=== PATIENT | male | born 1955 | race Caucasian/White ===

== ENCOUNTER 2017-01-08 12:02 | Inpatient (IN) ==
--- NOTE | 2017-01-08 15:17 | Diag Imaging Result Document ---
PROCEDURE NAME: FLAT/UPRIGHT ABD/1 VIEW CHEST - 01/08/2017 FLAT AND UPRIGHT AND CHEST, 4 VIEWS: FINDINGS: The lungs are well expanded. No cardiomegaly. No pneumonia. There is scarring in the right apex. No free air beneath the diaphragm. There is air and stool throughout the colon. No bowel obstruction. No organomegaly. No abnormal abdominal or pelvic calcifications. IMPRESSION: No acute abnormality.
[2017-01-08 15:19] LABS: MANUAL DIFF NEEDED? NO
[2017-01-08 15:26] LABS: BASO% 0.1 % (0.0-0.8); EOS# 0.01 X1000 (0.0-0.7); EOS% 0.1 % (0.0-10.0); HEMATOCRIT 41.8 % (42.0-52.0); HEMOGLOBIN 14.9 g/dL (14.0-18.0); IMM GRAN# 0.03 X1000 (0.0-0.04); IMM GRAN% 0.2 % (0.0-0.5); LYMPH# 1.11 X1000 (1.2-3.4); LYMPH% 7.4 % (20.5-51.1); MCH 30.3 PG (27-31); MCHC 35.6 g/dL (33-37); MCV 85.1 FL (81-99); MONO# 1.28 X1000 (0.11-0.59); MONO% 8.5 % (1.7-9.3); MPV 12.4 FL (7.4-10.4); NEUT% 83.7 % (42.2-75.2); PLT 130 X1000 (130-400); RBC 4.91 XMIL (4.7-6.1)
[2017-01-08 15:58] LABS: AGAP 14; ALBUMIN 3.9 g/dL (3.5-5.0); ALKALINE PHOSPHATASE 65 U/L (32-122); BUN 13 mg/dL (8-22); CALCIUM 8.5 mg/dL (8.8-10.2); CHLORIDE 94 mmol/L (98-107); COSMO 269; GOT 16 U/L (10-34); GPT 12 U/L (10-44); POTASSIUM 3.5 mmol/L (3.5-5.1); SODIUM 134 mmol/L (136-145); TCO2 26 mmol/L (25-35); TOTAL BILIRUBIN 1.16 mg/dL (0.20-1.00)
--- NOTE | 2017-01-08 17:57 | Diag Imaging Result Document ---
PROCEDURE NAME: CT ABD/PELVIS W/ IV CONT ONLY - 01/08/2017 CT ABDOMEN AND PELVIS WITH INTRAVENOUS CONTRAST: TECHNIQUE: Dose reduction protocol. FINDINGS: Mild fatty infiltration of the liver. Normal spleen, pancreas, and adrenal glands. The gallbladder is distended and contains several stones. I believe there is an aortic femoral graft. No free air. No bowel obstruction. There is stool throughout the colon. Normal appendix. No abscess. The urinary bladder is moderately distended. The prostate is not enlarged. IMPRESSION: 1. No free air following colonoscopy. 2. The gallbladder is quite distended measuring at least 4.5 x 10.3 cm and contains several stones. 3. Atrophic left kidney. A preliminary report was given at 5:44 p.m.
[2017-01-08] MEDS ORDERED: NS 1,000 ML IV ONE ×2 (18:04→20:14)
[2017-01-08 18:11] LABS: INR 1.12; PROTIME 11.8 Seconds (9.2-11.7)
[2017-01-08] MEDS ORDERED: LEVAQUIN 750 MG/D5W 750 MG/150 ML IVPB IV ONE (18:15)
[2017-01-08] MEDS ORDERED: FLAGYL 500 MG/NS 500 MG/100 ML IVPB IV ONE (18:16)
--- NOTE | 2017-01-08 18:17 | PROVIDER DOCUMENTATION ---
This chart was entered by Genie Gannon Scribe, acting as scribe for Jessica Tomlinson Jr, MD. HPI-Abdominal Pain/GI Problem - General Chief Complaint: Post Op Complaint Stated Complaint: SEVERE PAIN AFTER COLONOSCOPY 01/07/17 Time Seen by Provider: 01/08/17 14:07 Source: patient Allergies/Adverse Reactions: Patient Allergies Allergy/AdvReac Type Severity Reaction Status Date / Time Penicillins AdvReac Unknown Verified 01/08/17 15:38 Home Medications: Home Medication List Medication Instructions Recorded Confirmed Last Taken Type ATORVAstatin [Lipitor] 40 mg PO QHS 01/08/17 01/08/17 01/07/17 21:00 History Amlodipine Besylate 2.5 mg PO DAILY 01/08/17 01/08/17 01/08/17 05:30 History Citalopram [Celexa] 10 mg PO BID 01/08/17 01/08/17 01/08/17 05:30 History Citalopram [Celexa] 20 mg PO DAILY 01/08/17 01/08/17 01/08/17 05:30 History Metoprolol Succinate 100 mg PO DAILY 01/08/17 01/08/17 01/08/17 05:30 History - History of Present Illness-ABD Nature of Presenting Problems: Pt is 61 y/o M presents to the ED with RUQ pain. Pt states having a colonoscopy done yesterday. Pt states pain started last night. Pt states N and denies V Abdominal Pain Onset Location: reports: RUQ Pain Radiation: reports: no radiation Quality of Pain: reports: sharp, stabbing Severity in ED: reports: mild Onset/Duration: reports: 24 hours ago Timing: reports: still present Activities at Onset: reports: light activity Exposure to sick contacts?: No Modifying Factors: improves with: movement (worse), other (position improves) Associated Symptoms: reports: nausea. denies: anxiety, arm pain, back/neck pain , chest pain, constipation, cough, diaphoresis, diarrhea, dizziness, EENT symptoms, fatigue, fever/chills, genitourinary problems, headaches, heartburn, joint pain, loss of appetite, malaise, muscle aches, sinus congestion/drainage, rash, seizure, shortness of breath, sensory/motor loss, pain with inspiration, swelling/mass in abdomen, syncope, vomiting, weakness, trouble walking Last BM: unsure Dark Stools Present?: reports: none noticed Rectal Bleeding: reports: none Rectal Pain: reports: none Emesis Description: reports: none Bruising or Bleeding Gums?: No Similar Symptoms Previously?: Yes Recently seen or treated by another doctor?: No Review of Systems - Adult - REVIEW OF SYSTEMS - ADULT Constitutional: reports: no symptoms reported Eyes: reports: no symptoms reported Ears, Nose, Mouth & Throat: reports: no symptoms reported Cardiovascular: reports: no symptoms reported Respiratory: reports: no symptoms reported Gastrointestinal: reports: abdominal pain (RUQ), nausea. denies: diarrhea, vomiting Genitourinary: reports: no symptoms reported Musculoskeletal: reports: no symptoms reported Integumentary: reports: no symptoms reported Neurological: reports: no symptoms reported Psychiatric: reports: no symptoms reported Endocrine: reports: no symptoms reported Hematologic/Lymphatic: reports: no symptoms reported Allergic/Immunologic: reports: no symptoms reported All Other Systems: Reviewed and Negative Past History - Adult - PAST MEDICAL HISTORY-ADULT Review of Records: reports: Nursing Assessment Review, Medications Reviewed, Social history reviewed & non-contributory. Major Childhood Illnesses: reports: history unknown Cardiovascular: reports: HTN, hyperlipidemia Respiratory: reports: denies history Gastrointestinal: reports: denies history Obstetrical/Gynecological: reports: denies history Genitourinary: reports: denies history Musculoskeletal: reports: denies history Neurological: reports: denies history Endocrine/Immune: reports: denies history Other Conditions: reports: denies history - PRIOR SURGERIES/PROCEDURES Surgical/Procedure History: reports: orthopedic (extremity) - PRIOR HOSPITALIZATIONS Prior Hospitalizations: reports: none - IMMUNIZATION STATUS Childhood Immunizations: See Nurse Assessment Flu Vaccine: See Nurse Assessment - FAMILY HISTORY Family History: reviewed, not pertinent - SOCIAL HISTORY Smoking: denies Substance Use: denies Living Situation: family Physical Exam-General - PHYSICAL EXAM-ADULT Initial Vital Signs Reviewed: Yes - CONSTITUTIONAL General Appearance: alert, no apparent distress - EYES Eyes: PERRL/EOMI, pink conjunctivae - HEAD, EARS, NOSE, MOUTH & THROAT HENMT: normocephalic/atraumatic, moist mucous membranes, normal ENT inspection - NECK Neck: supple, normal inspection - RESPIRATORY Respiratory: chest non-tender, lungs clear, normal breath sounds - CARDIOVASCULAR Cardiovascular: normal peripheral pulses, regular rate, rhythm - GASTROINTESTINAL (ABDOMEN) Abdominal Exam: normal bowel sounds, soft, tenderness (RUQ) - LYMPHATIC Lymphatic: no adenopathy - MUSCULOSKELETAL Back Exam: normal inspection, no CVA tenderness, no vertebral tenderness Extremity: normal range of motion, non-tender - SKIN Integumentary: normal color, normal turgor, warm/dry - NEUROLOGIC Neurologic: grossly normal - PSYCHIATRIC Psych/Mental Status: normal mood/affect, oriented x 3 Progress - PLAN OF CARE/RESULTS Progress/Plan/Lab Results: Vital Signs - 8 hr 01/08/17 13:02 Temperature 98.1 F Pulse Rate 64 Respiratory Rate 20 Blood Pressure 117/75 O2 Sat by Pulse Oximetry 100 Orders Category Date Time Status FLAT/UPRIGHT ABD/1 VIEW CHEST [RAD] Stat Exams 01/08/17 14:14 Taken CBC WITH ELECTRONIC DIFF [HEME] Stat Lab 01/08/17 14:15 Uncollected CMP [COMPREHENSIVE METABOLIC PANEL] [CHEM] Stat Lab 01/08/17 14:15 Uncollected Result Diagrams: 01/08/17 15:12 01/08/17 15:12 - XRAY 1 XRAY: Bilateral XRAY Study: Chest, Abdomen Impression: Normal XRAY Interpretation: no acute abnormality - CT/MRI 1 CT Study: Abdomen, Pelvis Impression: Abnormal CT Results: no free air; distended gallbladder (5x10cm) with stones - CONSULTS/PCP/HOSPITALIST Notification #1 *Consult/PCP/Hospitalist*: Dr. Vasquez Time Discussed: 18:06 Consult Disposition: Admit (will on floor) #2 Consult: Dr. Jordan Time Discussed: 18:17 Consult Disposition: Will see in ED, Admit Departure - Departure Time of Disposition Decision: 18:16 DIAGNOSIS: Acute cholecystitis Disposition: ADMITTED INPATIENT 09 Certified Medical Emergency: Emergent Condition: Good Referrals and Follow-Ups: Scar Cabrera [Primary Care Provider] - This chart was documented by the indicated scribe, (Genie Gannon Scribe) and accurately reflects the services I performed and decisions made by me, Jessica Tomlinson Jr, MD, as attested by the provider's signature.
[2017-01-08] MEDS ORDERED: TYLENOL PO PRN (19:30)
[2017-01-08] MEDS ORDERED: MORPHINE IV PRN (19:30)
[2017-01-08] MEDS ORDERED: ZOFRAN IV PRN (19:30)
[2017-01-08] MEDS ORDERED: CELEXA PO SCH ×2 (21:00)
--- NOTE | 2017-01-08 21:09 | CONSULTATION ---
HISTORY OF PRESENT ILLNESS: Mr. Conrad North is a patient of Dr. Cabrera. He is a 61-year- old white male who underwent a colonoscopy yesterday by Dr. Barr as an outpatient. This procedure was done about 9 o'clock and he began hurting in his upper abdomen at 2 p.m. The report of the colonoscopy is that it was normal and no polyps were removed at the time of colonoscopy. His pain lasted through the afternoon and night and he presented to our emergency department around 12 today because of this persistent upper abdominal pain. He described the pain in his right upper quadrant and it radiated to his back. As part of his evaluation, he underwent a CT scan of his abdomen and pelvis which suggested distended gallbladder. He has had a history of abdominal surgery which was an aortobifemoral arterial bypass graft 19 years ago. I believe it was done by Dr. Green. He states that he feels a little bit better since being admitted. He is on IV antibiotics and we were asked to evaluate him for acute cholecystitis. PAST MEDICAL HISTORY: Hypertension, high cholesterol, and peripheral vascular disease. He quit smoking 19 years ago. He also has arthritis. MEDICATIONS: Celexa 10 mg p.o. b.i.d., amlodipine 2.5 mg daily, Lipitor 40 mg p.o. at bedtime, metoprolol 100 mg p.o. daily and Celexa 20 mg daily. ALLERGIES: Penicillin. SOCIAL HISTORY: He is . His was at the bedside. She is battling right lung cancer. She did not have surgery but she received chemo and radiation and I put her port in. He works for the [employer] outside. 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 He has not seen him recently. He states that he has had no chest pain. No weight loss. No problems with bowel function . I did a 14-point review of systems and it was essentially negative except for the history of present illness. FAMILY HISTORY: Noncontributory. PHYSICAL EXAMINATION: GENERAL: Mr. North is a middle aged white male who is slightly overweight and he appears to be in good shape. HEENT EXAM: No jaundice. No oral lesions. No cervical or supraclavicular lymphadenopathy. HEART: Regular rate. LUNGS: Clear to auscultation and percussion bilaterally. He has a well-healed midline incision without evidence of ventral hernia. ABDOMEN: Soft. It does seem to be tender in the right upper quadrant at the area of the gallbladder I could not palpate the gallbladder. He had no costovertebral tenderness. I did not do a rectal exam. He just had colonoscopy. EXTREMITIES: He does have palpable femoral pulses. Those incisions in the groin are well healed. His feet were warm. NEURO: He had no focal deficits. DIAGNOSTIC DATA: His white blood cell count 15, hematocrit is 42%. His electrolytes were within normal limits. His total bilirubin was 1.2. The rest of his liver function tests were within normal limits. His PT was 11.8. INR 1.12. His temperature 98.1 degrees, pulse is 64, blood pressure 117/75, O2 saturation 100%. CT scan performed about 4:30 this afternoon showed a distended gallbladder containing stones. No evidence of free air following colonoscopy. Report was given to the ER at 5:44 p.m. IMPRESSION: Acute cholecystitis. PLAN: He is receiving IV fluids and antibiotics this evening. He is hemodynamically satisfactory and mostly comfortable. Will plan to proceed with cholecystectomy tomorrow. He understands that he is at increased risk for an open procedure because of previous abdominal surgery and acute cholecystitis. We specifically discussed the risks of surgery which include bleeding, infection, injury to the intraabdominal contents with trocar placement, bile leak requiring reoperation for drainage, and injury to the extrahepatic bile ducts requiring reoperation. He understands the need for surgery and its risks and he wants to proceed. cc: Jennifer Vasquez MD
--- NOTE | 2017-01-08 21:14 | HISTORY AND PHYSICAL ---
CHIEF COMPLAINT: Abdominal pain. HISTORY OF PRESENT ILLNESS: This is a pleasant 61-year-old gentleman who came in for pain. Apparently had a colonoscopy on the . He has been holding his aspirin and came in with right upper quadrant pain. He has had polyps so the colonoscopy I think was just a followup. It was not a colonoscopy done for symptomatology. Pain is right upper quadrant. It has been going on and off for several days. Workup in the ER revealed [place] grade [place] [address], and a CT scan that showed distended gallbladder with several stones consistent with early cholecystitis. In any case, patient admitted as such. PAST MEDICAL HISTORY: 1. PVD. He has had bypass surgery. 2. Dyslipidemia. 3. Denies any heart history although he has a coronary artery disease equivalent or any diabetes. PAST SURGICAL HISTORY: He has had a femoral-popliteal bypass within the last [address] Green did that which I think was in 2012. FAMILY HISTORY: Reviewed, noncontributory. SOCIAL HISTORY: No tobacco or ethanol. ALLERGIES: Penicillin. MEDICATIONS: He is on amlodipine 2.5 daily, Lipitor 40 daily, Celexa 20 daily, Celexa 10 b.i.d., metoprolol 100 daily. REVIEW OF SYSTEMS: Negative times a 10 point review of systems. PHYSICAL EXAM: VITAL SIGNS: Blood pressure 111/48, heart rate 69, respiratory 16, temperature 99.7 degrees, 94% on room air. CARDIOVASCULAR: Regular rate and rhythm. PULMONARY: Bilateral breath sounds. Clear to auscultation. GI: Tender palpation right upper quadrant. Nondistended. Bowel sounds are positive. EXTREMITIES: No clubbing or cyanosis. LYMPHATICS: No peripheral edema. NEUROLOGICAL: Nonfocal. LABORATORY DATA: White count 15, T bilirubin 1.16. Otherwise negative. ASSESSMENT: 61-year-old male with history of hypertension, peripheral vascular disease presenting with symptomatic cholelithiasis the beginnings of cholecystitis. 1. Symptomatic cholelithiasis. I am going to keep him NPO after midnight. We started Levaquin and Flagyl. Surgical consult has been requested although I think Dr. Vasquez has already been contacted. Anticipate laparoscopic cholecystectomy pending on his evaluation and follow. 2. Hypertension. Will continue to monitor. 3. Peripheral vascular disease, dyslipidemia. Will continue monitor on current medications. He usually is on aspirin but he has been off that for the last 5 or 6 days. cc: Scar Cabrera MD
[2017-01-08] MEDS: LEVAQUIN 750 MG/D5W 750 MG/150 ML IVPB IV SCH (21:32)
[2017-01-08] MEDS: LIPITOR PO SCH (21:33)
[2017-01-08] MEDS: NORCO-10 PO PRN (21:37)
[2017-01-08] MEDS: MORPHINE IV PRN (23:06)
[2017-01-09] MEDS: FLAGYL 500 MG/NS 500 MG/100 ML IVPB IV SCH ×6 (00:08→20:58)
[2017-01-09] MEDS: MORPHINE IV PRN (03:54)
[2017-01-09 06:10] LABS: HEMATOCRIT 41.5 % (42.0-52.0); HEMOGLOBIN 14.3 g/dL (14.0-18.0); MCH 30.3 PG (27-31); MCHC 34.5 g/dL (33-37); MCV 87.9 FL (81-99); MPV 12.6 FL (7.4-10.4); RBC 4.72 XMIL (4.7-6.1)
[2017-01-09 06:25] LABS: ALBUMIN 3.7 g/dL (3.5-5.0); CALCIUM 8.5 mg/dL (8.8-10.2); TOTAL BILIRUBIN 3.04 mg/dL (0.20-1.00)
[2017-01-09] MEDS ORDERED: LR 1,000 ML ONE (08:41)
[2017-01-09] MEDS ORDERED: MARCAINE 0.25% PF/EPI 1:200,000 ONE (08:41)
[2017-01-09] MEDS ORDERED: SODIUM CHLORIDE 0.9% ONE (08:42)
[2017-01-09] MEDS ORDERED: CELEXA PO SCH (09:00)
[2017-01-09] MEDS ORDERED: FENTANYL ONE (10:32)
[2017-01-09] MEDS ORDERED: DIPRIVAN 1% ONE (10:33)
--- NOTE | 2017-01-09 11:01 | Diag Imaging Result Document ---
PROCEDURE NAME: OPERATIVE CHOLANGIOGRAM - 01/09/2017 INTRAOPERATIVE CHOLANGIOGRAM, TWO VIEWS: Contrast fills the common bile duct and is emptied into the duodenum. No stone or stricture. IMPRESSION: Normal intraoperative cholangiogram. NOTE: Fluoro time was 18 seconds. MTDD
[2017-01-09] MEDS: TOPROL XL PO SCH (12:04)
[2017-01-09] MEDS: NORCO-10 PO PRN ×3 (12:04→20:58)
--- NOTE | 2017-01-09 12:48 | OPERATIVE NOTE ---
PROCEDURE DATE: 01/09/2017 PREOPERATIVE DIAGNOSIS: Acute cholecystitis with cholelithiasis. POSTOPERATIVE DIAGNOSIS: Acute cholecystitis with cholelithiasis. PRINCIPAL PROCEDURE: Laparoscopic cholecystectomy with intraoperative cholangiogram. SURGEON: Jennifer Vasquez MD RECYCLING SPECIALIST: MILLIE Hallman. ANESTHESIA: General in addition to local anesthetic. ESTIMATED BLOOD LOSS: 25 mL. DRAINS: None. INDICATIONS: Mr. Conrad North is a 61-year-old white male who has had a history of an aortobifemoral arterial bypass graft. Recently, he underwent a colonoscopy by Dr. Poncho Barr and within 24 hours he began experiencing upper abdominal pain. He presented to our emergency department yesterday with these symptoms. A CT scan was performed and it suggested a swollen gallbladder. We felt that he had acute cholecystitis and cholecystectomy was recommended. FINDINGS: The gallbladder was tightly distended and acutely inflamed. The bile within it was brown. We did do an intraoperative cholangiogram, which showed free flow of the dye into the duodenum without evidence of extrahepatic stones or obstruction. The liver appeared to be healthy. He did have some abdominal adhesions, mostly between the omentum and the anterior abdominal wall, which we felt we negotiated safely when putting in our trocars. DESCRIPTION OF PROCEDURE: The patient was brought to the operating room, placed supine, received general anesthesia, and was intubated. We did not use a Sarkar catheter tube. His abdomen was prepped and draped within the sterile field. He was already on IV antibiotics. We began the procedure by making a small incision in the right upper quadrant of the abdomen, away from his midline incision. We made this incision with a 15 blade scalpel and a Veress needle was introduced through this incision into the abdomen, and the pneumoperitoneum was established. We then placed a 5 mm trocar through this incision and then used a 5 mm trocar to examine the abdomen. We felt there was no injury. We identified the adhesions along the midline and we placed our trocars, negotiating around these adhesions. Initially, I placed a 10 mm trocar in the right upper quadrant of the abdomen under direct vision of our 5 mm camera. I changed cameras to a 10 mm camera and I placed a 5 mm trocar above the umbilicus, through the right rectus muscle to the left of the umbilicus to avoid adhesions, again under direct vision of the camera, and this was an 11 mm trocar. I placed another 5 mm trocar in the anterior axillary line, in the right upper quadrant of the abdomen. We decompressed the gallbladder right away with a needle and suction. We then used a grasper with teeth to grab the fundus of the gallbladder and retract it superiorly, along with the right lobe of the liver. Another grasper was used to grab the body of the gallbladder and the triangle of Calot was bluntly dissected. We identified the cystic duct along its length. I placed a clip at the cystic duct/gallbladder junction. We made a small incision in the cystic duct using hook scissors and a taut intraoperative cholangiogram catheter was used to perform the cholangiogram, with the findings above. Once the cholangiogram was completed, we removed the catheter and 2 clips were placed proximally on the cystic duct. We divided the cystic duct between clips using hook scissors. The cystic artery was identified. A clip was placed distally, 2 proximally, and it was divided using the hook scissors. The spatula cautery was used to remove the gallbladder from the liver bed. We used an Endo bag to remove the gallbladder through our umbilical incision. We placed the trocar back through this incision and the area of operation was thoroughly inspected, irrigated, and the irrigation was removed with suction. There was no evidence of ongoing bleeding or bile leak. We did not leave a drain. All trocars were removed under direct vision of the camera. The pneumoperitoneum was allowed to dissipate. I used [id number] 2-0 Vicryl stitches to close the posterior fascia at our umbilicus and also the anterior fascia. We closed all other incisions just the skin with 4-0 Monocryl subcuticular stitches. Dressings were applied. He tolerated the procedure well, with plans for him to go to the recovery room and then be rehospitalized. cc: Jennifer Vasquez MD
--- NOTE | 2017-01-09 14:24 | PROGRESS NOTE ---
DATE: 01/09/2017 SUBJECTIVE: Patient seen postop. He seems to be doing okay. A little bit of a low O2 saturation though. Some pain but otherwise has tolerated the lap junie without too much difficulty. OBJECTIVE: Vital signs: Blood pressure 131/78, heart rate of 86, respiratory rate 20, temperature 99.9 degrees, 92%, he is up to 3 L already, he was kind of low yesterday as well. Cardiovascular: Regular rate and rhythm. Pulmonary: Bilateral breath sounds. Clear to auscultation. GI: Soft, nontender, nondistended. Bowel sounds were positive. Extremities: No clubbing or cyanosis. Lymphatics: No peripheral edema. Neurological: Nonfocal. LABORATORY DATA: White count is at 12, T bilirubin went up to 3.014, with an AST and ALT of 272 and 235. PROBLEM LIST: 1. Acute cholecystitis. He has gotten a laparoscopic cholecystectomy. I defer antibiotics to Dr. Vasquez, but it looks like he left them on the Levaquin and Flagyl for right now. 2. History of peripheral vascular disease. Appears stable. Continue regular medications. Anti- platelet therapy will be when Dr. Vasquez feels he is stable for that. 3. Peripheral vascular disease. Continue his statin and follow clinically. DISPOSITION: Pending resolution of his issues. cc: Keyur Jordan MD
[2017-01-09] MEDS: NORVASC PO SCH (14:35)
[2017-01-09] MEDS: LEVAQUIN 750 MG/D5W 750 MG/150 ML IVPB IV SCH (20:58)
[2017-01-09] MEDS: PERIDEX MT SCH (21:02)
[2017-01-09] MEDS: LIPITOR PO SCH (21:02)
[2017-01-10] MEDS: NORCO-10 PO PRN (01:50)
[2017-01-10 06:00] VITALS: BP 144/79
[2017-01-10] MEDS: FLAGYL 500 MG/NS 500 MG/100 ML IVPB IV SCH (06:21)
[2017-01-10 06:23] LABS: HEMATOCRIT 40.9 % (42.0-52.0); HEMOGLOBIN 14.1 g/dL (14.0-18.0); MCH 30.5 PG (27-31); MCHC 34.5 g/dL (33-37); MCV 88.3 FL (81-99); MPV 12.5 FL (7.4-10.4); RBC 4.63 XMIL (4.7-6.1)
[2017-01-10 06:45] LABS: AGAP 15; ALBUMIN 3.7 g/dL (3.5-5.0); ALKALINE PHOSPHATASE 137 U/L (32-122); BUN 14 mg/dL (8-22); CALCIUM 8.7 mg/dL (8.8-10.2); CHLORIDE 99 mmol/L (98-107); COSMO 277; GOT 103 U/L (10-34); GPT 159 U/L (10-44); POTASSIUM 3.9 mmol/L (3.5-5.1); SODIUM 138 mmol/L (136-145); TCO2 24 mmol/L (25-35); TOTAL BILIRUBIN 1.22 mg/dL (0.20-1.00); TOTAL PROTEIN 7.2 g/dL (6.3-8.3)
[2017-01-10] MEDS: TOPROL XL PO SCH (08:11)
[2017-01-10] MEDS: PERIDEX MT SCH (08:11)
[2017-01-10] MEDS: NORVASC PO SCH (08:11)
--- NOTE | 2017-01-10 08:35 | Diag Imaging Result Document ---
PROCEDURE NAME: CHEST-PORTABLE - 01/10/2017 PORTABLE CHEST: Compared 01/08/2017. FINDINGS: There is some atelectasis at the left base. There is possibly some atelectasis at the left superior perihilar region. The remainder of the lungs appear essentially clear. There is no pleural effusion or pneumothorax identified. Heart size is within normal limits. IMPRESSION: Atelectasis at right base and left superior perihilar region.
--- NOTE | 2017-01-10 18:45 | DISCHARGE SUMMARY ---
ADMISSION DATE: 01/08/2017 DISCHARGE DATE: 01/10/2017 ADMITTING DIAGNOSIS: Acute cholecystitis. DISCHARGE DIAGNOSIS: Acute cholecystitis. PRINCIPAL PROCEDURE: Laparoscopic cholecystectomy with intraoperative cholangiogram on 01/09/2017. DISCHARGE DIET: Regular. DISCHARGE DISPOSITION: He will return to my outpatient office in 8 days. DISCHARGE DISABILITY: Is full. DISCHARGE MEDICATION: He is to return to his home medication including aspirin. I did not send him home on any discharge medications. HOSPITAL COURSE: Mr. Conrad North is a 61-year-old white male who the day prior to his presentation 01/07/2017 underwent a colonoscopy per Dr. Barr as an outpatient. It was reported as normal and no polyps were removed. However that evening he began experiencing upper abdominal pain, which persisted through the night prompting him to present to our emergency department with this abdominal pain on 01/08/2017. A CT scan of his abdomen and pelvis was part of his evaluation, which suggested distended gallbladder as did his symptoms. He was admitted and on hospital day 2 underwent a laparoscopic cholecystectomy with intraoperative cholangiogram for acute cholecystitis. At the time of surgery the cholangiogram was normal. He had a previous aortobifemoral arterial bypass graft and we were able to do this procedure laparoscopically and negotiate his intraabdominal adhesions. On postop day 1, he was feeling much better. It was felt safe to discharge him home under the care of his with followup in our outpatient offices in 8 days. He knows to contact our office if there is any problems such as increasing abdominal pain or fever. cc: Ba Barr MD
--- NOTE | 2017-01-11 06:18 | EKG Report ---
Test Performed on : 01/08/2017 8:53:21 PM Test Reason : Re-Ordered Blood Pressure : / mmHG Vent. Rate : 070 BPM Atrial Rate : 070 BPM P-R Int : 158 ms QRS Dur : 074 ms QT Int : 400 ms P-R-T Axes : 015 063 119 degrees QTc Int : 432 ms Normal sinus rhythm. Nonspecific ST and T wave abnormality (mild diffuse T wave flattening) Abnormal ECG No previous ECGs available Confirmed by Tai GRACE, Thom Iniguez ([id number]) on 01/11/2017 8:57:09 AM
[2017-01-11] MEDS ORDERED: LOPRESSOR ONE (10:53)
[2017-01-11] MEDS ORDERED: ZOFRAN ONE (10:53)
[2017-01-11] MEDS ORDERED: NEOSTIGMINE ONE (10:53)
[2017-01-11] MEDS ORDERED: SODIUM CHLORIDE 0.9% 10 ML ONE (10:53)
[2017-01-11] MEDS ORDERED: NEO-SYNEPHRINE ONE (10:53)
[2017-01-11] MEDS ORDERED: STERILE WATER INJ. ONE (10:53)
[2017-01-11] MEDS ORDERED: ROBINUL ONE (10:54)
[2017-01-11] MEDS ORDERED: NORCURON ONE (10:54)
[2017-01-11] MEDS ORDERED: ANESTHESIA PB SET 88 IN 5742 ONE (10:54)
[2017-01-11] MEDS ORDERED: DECADRON ONE (10:54)
[2017-01-11] MEDS ORDERED: LR 2,000 ML ONE (10:54)
[2017-01-11] MEDS ORDERED: XYLOCAINE-MPF 2% ONE (10:54)
[2017-01-11] MEDS ORDERED: QUELICIN (DOSE) ONE (10:54)
[2017-01-11] MEDS ORDERED: EPHEDRINE ONE (10:54)
== END 2017-01-10 09:51 | disposition home or self-care (01) ==
LOC: ED 12:02 → 4N 18:43
PROVIDERS: ATTEND Internal Medicine

== ENCOUNTER 2019-08-03 13:01 | Observation (INO) ==
[2019-08-03] MEDS ORDERED: ASPIRIN PO ONE (13:09)
[2019-08-03 13:33] LABS: BASO# 0.04 X1000 (0.0-0.2); BASO% 0.4 % (0.0-0.8); EOS# 0.13 X1000 (0.0-0.7); EOS% 1.4 % (0.0-10.0); HEMATOCRIT 43.9 % (42.0-52.0); HEMOGLOBIN 15.8 g/dL (14.0-18.0); LYMPH# 3.14 X1000 (1.2-3.4); LYMPH% 34.3 % (20.5-51.1); MCH 30.5 PG (27-31); MCV 84.7 FL (81-99); MONO# 0.64 X1000 (0.11-0.59); MPV 12.3 FL (7.4-10.4); NEUT% 56.9 % (42.2-75.2); PLT 148 X1000 (130-400); RBC 5.18 XMIL (4.7-6.1); RDW 13.4 % (11.5-14.5); WBC 9.15 X1000 (4.8-10.8)
[2019-08-03 13:39] LABS: INR 1.01; PROTIME 13.4 Seconds (11.0-16.0)
[2019-08-03 13:40] LABS: PTT 25.3 Seconds (22.3-41.8)
--- NOTE | 2019-08-03 14:00 | Diag Imaging Result Doc PS360 ---
EXAM: CHEST-2 VIEWS 08/03/2019 HISTORY: SOB/CP TECHNIQUE: PA and lateral chest COMMENT: Compared to 01/10/2017 the atelectasis seen particularly over the right hemidiaphragm has resolved. The inspiration is better and the heart and primary vascularity are within normal limits. IMPRESSION: No evidence of acute disease. Electronically signed by Marcello Espinal 08/03/2019 1:57 PM
--- NOTE | 2019-08-03 14:00 | EKG Report ---
Test Performed on : 08/03/2019 1:12:36 PM Test Reason : SOB/CP Blood Pressure : / mmHG Vent. Rate : 062 BPM Atrial Rate : 062 BPM P-R Int : 156 ms QRS Dur : 074 ms QT Int : 440 ms P-R-T Axes : 000 053 064 degrees QTc Int : 446 ms Normal sinus rhythm. Normal ECG When compared with ECG of 08-JAN-2017 20:53, Nonspecific T wave abnormality, improved in Lateral leads Unconfirmed Result
[2019-08-03 14:13] LABS: ALB/GLOB RATIO 2.5; ALBUMIN 4.7 g/dL (3.5-5.0); CALCIUM 9.5 mg/dL (8.8-10.2); CREATININE 1.3 mg/dL (0.7-1.2); TOTAL BILIRUBIN 0.9 mg/dL (0.20-1.00); TOTAL PROTEIN 6.6 g/dL (6.3-8.3)
[2019-08-03] MEDS ORDERED: DUONEB (A & A) INH ONE (14:14)
[2019-08-03] MEDS ORDERED: ZOFRAN ODT PO ONE (14:14)
[2019-08-03] MEDS ORDERED: ANTIVERT PO ONE (14:14)
--- NOTE | 2019-08-03 16:26 | PROVIDER DOCUMENTATION ---
This chart was entered by Tiffanie Vasqeuz Scribe, acting as scribe for Mary Conway MD. HPI-Respiratory General - General Chief Complaint: Shortness of Breath Stated Complaint: SOB Time Seen by Provider: 08/03/19 13:22 Source: patient, family () Allergies/Adverse Reactions: Patient Allergies Allergy/AdvReac Type Severity Reaction Status Date / Time Penicillins AdvReac Unknown Verified 08/03/19 13:46 Home Medications: Home Medication List Medication Instructions Recorded Confirmed Last Taken Type ATORVAstatin [Lipitor] 40 mg PO QHS 01/08/17 08/03/19 01/07/17 21:00 History Amlodipine Besylate 2.5 mg PO DAILY 01/08/17 08/03/19 01/08/17 05:30 History Citalopram [Celexa] 10 mg PO QAM 01/08/17 08/03/19 01/08/17 05:30 History Citalopram [Celexa] 30 mg PO DAILY 01/08/17 08/03/19 01/08/17 05:30 History Metoprolol Succinate 100 mg PO DAILY 01/08/17 08/03/19 01/08/17 05:30 History Aspirin EC 81 mg PO DAILY 08/03/19 08/03/19 Unknown History - History of Present Illness-Resp Nature of Presenting Problem: 64 yowm presents to the ed with multiple complaints. 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 while under the trailer pt became sob, dizzy, nausea, vomiting, cough, chills and chest pressure. pt sts he crawled out and sx improved. he rested and then went back under the trailer and all sx returned. pt sts once he came out the sx have persisted so he got his to bring him to ed. pt on exam is anxious Quality of Pain: reports: pressure Severity in ED: reports: moderate Onset/Duration: reports: this morning Timing: reports: still present, intermittent Exposure: reports: unknown cause Cough Quality/Degree: reports: mild, dry cough Episode Frequency: no prior episodes Current Respiratory Medication Therapy: Initiated see nurses note Modifying Factors: improves with: oxygen, sitting upright. worse with: exertion Associated Symptoms: reports: chest pain/soreness, cough, dizziness, fever/chills (denies fever but has chills), lightheadedness, shortness of breath , other (n/v). denies: wheezing Similar Symptoms Previously?: No Recently seen or treated by another doctor?: No Review of Systems - Adult - REVIEW OF SYSTEMS - ADULT Constitutional: reports: see HPI, chills. denies: fever Eyes: reports: no symptoms reported Ears, Nose, Mouth & Throat: reports: no symptoms reported Cardiovascular: reports: see HPI, chest pain. denies: palpitations, syncope Respiratory: reports: see HPI, cough, shortness of breath. denies: wheezing Gastrointestinal: reports: see HPI, nausea, vomiting. denies: diarrhea Genitourinary: reports: no symptoms reported Musculoskeletal: denies: back pain, neck pain Integumentary: reports: no symptoms reported Neurological: reports: see HPI, dizziness/vertigo. denies: headache/migraines, slurred speech, syncope Psychiatric: reports: no symptoms reported Endocrine: reports: no symptoms reported Hematologic/Lymphatic: reports: no symptoms reported Allergic/Immunologic: reports: no symptoms reported All Other Systems: Reviewed and Negative Past History - Adult - PAST MEDICAL HISTORY-ADULT Review of Records: reports: Old Records Reviewed, Nursing Assessment Review, Medications Reviewed, Social history reviewed & non-contributory. Major Childhood Illnesses: reports: history unknown Cardiovascular: reports: HTN, hyperlipidemia, PAD, other (sx) Respiratory: reports: denies history Gastrointestinal: reports: denies history Genitourinary: reports: denies history Musculoskeletal: reports: denies history Hand Dominance: Right Handed Neurological: reports: denies history Psychiatric: reports: denies history Endocrine/Immune: reports: denies history Other Conditions: reports: denies history - PRIOR SURGERIES/PROCEDURES Surgical/Procedure History: reports: orthopedic (extremity), other (double angioplasty) - PRIOR HOSPITALIZATIONS Prior Hospitalizations: reports: none - IMMUNIZATION STATUS Childhood Immunizations: See Nurse Assessment Flu Vaccine: See Nurse Assessment - FAMILY HISTORY Family History: reviewed, not pertinent - SOCIAL HISTORY Smoking: quit greater than 1 year Substance Use: denies Living Situation: family Physical Exam-General - PHYSICAL EXAM-ADULT Initial Vital Signs Reviewed: Yes - CONSTITUTIONAL General Appearance: alert, mild distress, obese, anxious - EYES Eyes: PERRL/EOMI, pink conjunctivae - HEAD, EARS, NOSE, MOUTH & THROAT HENMT: negative: moist mucous membranes (dry oral) - NECK Neck: non-tender, full range of motion, supple, normal inspection - RESPIRATORY Respiratory: chest non-tender, lungs clear, normal breath sounds, other (pt c/o sob with exertion or speaking in long sentences) - CARDIOVASCULAR Cardiovascular: normal peripheral pulses, bradycardia (58), other (c/o chest pressure with sob) - CHEST (BREASTS) Chest/Breast: deferred - GASTROINTESTINAL (ABDOMEN) Abdominal Exam: normal bowel sounds, non tender, soft, other (c/o feeling bloated but denies pain/pt does have nausea with [employer]PARER). negative: distended, guarding - GENITOURINARY Male Genitalia: deferred Rectal Exam: deferred Hemoccult Exam: deferred - LYMPHATIC Lymphatic: no adenopathy - MUSCULOSKELETAL Back Exam: normal inspection, no CVA tenderness, no vertebral tenderness Extremity: normal range of motion, non-tender, normal inspection, no pedal edema , no calf tenderness, normal capillary refill, pelvis stable - SKIN Integumentary: normal color, normal turgor, warm/dry - NEUROLOGIC Neurologic: grossly normal - PSYCHIATRIC Psych/Mental Status: normal mood/affect, normal thought content, normal thought process, oriented x 3, anxious Progress - PLAN OF CARE/RESULTS Progress/Plan/Lab Results: Vital Signs - 8 hr 08/03/19 13:05 08/03/19 13:13 08/03/19 13:17 Temperature 97.1 F L Pulse Rate 79 64 Respiratory Rate 20 20 Blood Pressure 174/93 147/101 O2 Sat by Pulse Oximetry 97 99 100 Laboratory Results - last 24 hr 08/03/19 08/03/19 08/03/19 13:16 13:20 13:20 WBC 9.15 RBC 5.18 Hgb 15.8 Hct 43.9 MCV 84.7 MCH 30.5 MCHC 36.0 RDW Std Deviation 13.4 Plt Count 148 MPV 12.3 H Neut % (Auto) 56.9 Lymph % (Auto) 34.3 Bell % (Auto) 7.0 Eos % (Auto) 1.4 Baso % (Auto) 0.4 Neut # (Auto) 5.20 Lymph # (Auto) 3.14 Bell # (Auto) 0.64 H Eos # (Auto) 0.13 Baso # (Auto) 0.04 PT INR PTT (Actin FS) D-Dimer, Quantitative 1.27 H Sodium 138 Potassium 4.0 Chloride 98 Carbon Dioxide 22 L Anion Gap 18 BUN 14 Creatinine 1.3 H Estimated GFR/1.73 m2 56 BUN/Creatinine Ratio 11 Glucose 112 H Calculated Osmolality 277 Calcium 9.5 Total Bilirubin 0.90 AST 25 ALT 20 Alkaline Phosphatase 72 Creatine Kinase 109 Troponin T Inb-D-Ytxqydkspsv Pept Total Protein 6.6 Albumin 4.7 Globulin 1.9 Albumin/Globulin Ratio 2.5 08/03/19 08/03/19 08/03/19 13:20 13:20 13:20 WBC RBC Hgb Hct MCV MCH MCHC RDW Std Deviation Plt Count MPV Neut % (Auto) Lymph % (Auto) Bell % (Auto) Eos % (Auto) Baso % (Auto) Neut # (Auto) Lymph # (Auto) Bell # (Auto) Eos # (Auto) Baso # (Auto) PT 13.4 INR 1.01 PTT (Actin FS) 25.3 D-Dimer, Quantitative Sodium Potassium Chloride Carbon Dioxide Anion Gap BUN Creatinine Estimated GFR/1.73 m2 BUN/Creatinine Ratio Glucose Calculated Osmolality Calcium Total Bilirubin AST ALT Alkaline Phosphatase Creatine Kinase Troponin T < 0.010 Lqm-B-Qheamnxfoif Pept 204 H Total Protein Albumin Globulin Albumin/Globulin Ratio Orders Category Date Time Status Cardiac Monitoring DIRECTED Care 08/03/19 13:09 Active Oxygen Therapy- ED Nursing DIRECTED Care 08/03/19 13:09 Active Saline Loc NOW Care 08/03/19 13:09 Active CHEST-2 VIEWS [RAD] Stat Exams 08/03/19 13:[address] ANGIOGRM PULMONARY ARTERIES [CT] Stat Exams 08/03/19 16:25 Completed CBC WITH ELECTRONIC DIFF [HEME] Stat Lab 08/03/19 13:20 Completed CK PROFILE [SP CHEM] Stat Lab 08/03/19 13:20 Completed COMPREHENSIVE METABOLIC PANEL [CHEM] Stat Lab 08/03/19 13:20 Completed D-DIMER [COAG] Stat Lab 08/03/19 13:16 Completed PRO B-NATRIURETIC PEPTIDE Stat Lab 08/03/19 13:20 Completed PROTIME WITH INR [COAG] Stat Lab 08/03/19 13:20 Completed PTT [COAG] Stat Lab 08/03/19 13:20 Completed TROPONIN T Stat Lab 08/03/19 13:20 Completed Albuterol 2.5MG/Ipratrop 0.5MG [Duoneb (A & A)] Med 08/03/19 14:14 Discontinued 3 ml INH NOW ONE Aspirin Med 08/03/19 13:09 Discontinued 325 mg PO NOW ONE Meclizine [Antivert] Med 08/03/19 14:14 Discontinued 25 mg PO NOW ONE Ondansetron Odt [Zofran Odt] Med 08/03/19 14:14 Discontinued 4 mg PO NOW ONE Aerosol Treatments Routine Oth 08/03/19 14:15 Completed Aerosol Treatments Stat Oth 08/03/19 14:15 Completed CP/SOB/Palp >45 yrs of Age Stat Oth 08/03/19 13:09 Ordered EKG [EKG] Stat Ther 08/03/19 13:09 Draft Result Diagrams: 08/03/19 13:20 08/03/19 13:20 - REASSESSMENT Reassessment #1 Time Reassessed: 16:38 Status: improving (dr at bedside and pt has mild improvement of sx) - EKG 1 Time of EKG reading by physician:: 13:12 EKG Read and Signed by:: Mary Conway EKG Interpretation (*Must complete 3 of following elements*): Normal Rate: 62 Rhythm: nsr [place]: normal QRS: normal [place] Interval: normal ST Wave: normal - XRAY 1 XRAY: Bilateral XRAY Study: Chest Impression: See EMR Report (EXAM: CHEST-2 VIEWS 08/03/2019 HISTORY: SOB/CP TECHNIQUE: PA and lateral chest COMMENT: Compared to 01/10/2017 the atelectasis seen particularly over the right hemidiaphragm has resolved. The inspiration is better and the heart and primary vascularity are within normal limits. IMPRESSION: No evidence of acute disease. Electronically signed by Marcello Espinal 08/03/2019 1:57 PM 08/03/19 1357 Interpreting Physician: Marcello Espinal MD Dictated Date/Time: 08/03/19 1357 cc: Mary Conway MD; Scar Cabrera MD) - CT/MRI 1 CT Study: Angiogram Impression: See EMR Report - CONSULTS/PCP/HOSPITALIST Notification #1 *Consult/PCP/Hospitalist*: d/w Dr Angel Time Discussed: 18:05 Consult Disposition: Will see in ED, Admit Departure - Departure Date of Disposition Decision: 08/03/19 Time of Disposition Decision: 18:05 DIAGNOSIS: Chest pain Disposition: ADMITTED INPATIENT 09 Certified Medical Emergency: Emergent Condition: Stable Referrals and Follow-Ups: Scar Cabrera MD [Primary Care Provider] - - Critical Care Note This patient required my direct & personal management of CC.: No Attestation - Physician/ ABDOUL Attestation Patient care was provided by Advanced Practice Provider:: No The physician spent face to face time with patient:: Yes Advanced Practice Provider documentation review:: Supervising physician onsite and consulted in the evaluation and care of this patient. The physician did have a face to face encounter with the patient. This chart was documented by the indicated scribe, (Tiffanie Vasquez Scribe) and accurately reflects the services I performed and decisions made by me, Mary Conway MD, as attested by the provider's signature.
--- NOTE | 2019-08-03 17:43 | Diag Imaging Result Doc PS360 ---
EXAM: CT ANGIOGRM PULMONARY ARTERIES 08/03/2019 HISTORY: elevated d-dimer, dyspnea TECHNIQUE: This exam was performed using automated exposure control, adjustment of mA or kV according to patient size, and/or use of iterative reconstruction technique. COMMENT: There are no previous studies available for comparison. 3-D MIPS were performed. There are no filling defects in the pulmonary arteries. There are extensive atherosclerotic calcifications present in the thoracic aorta. There is calcification of the left coronary artery. No evidence of dissection or aneurysm is present. There are no abnormal fluid collections. No significant adenopathy is present. There are severe emphysematous changes in both upper lung zones. There are some atelectatic or fibrotic changes in the posterior costophrenic sulci particularly on the left. No evidence of acute pulmonary parenchymal disease is present. There are no acute bony abnormalities. No acute abnormality is demonstrated in the visualized portion of the abdomen. IMPRESSION: COPD. No evidence of pulmonary emboli. Electronically signed by Marcello Espinal 08/03/2019 5:41 PM
[2019-08-03] MEDS ORDERED: LIPITOR PO SCH (21:00)
[2019-08-03] MEDS ORDERED: DUONEB (A & A) INH PRN (21:06)
[2019-08-03] MEDS ORDERED: TYLENOL PO PRN (21:06)
[2019-08-03] MEDS ORDERED: LOVENOX SUBQ SCH (21:06)
[2019-08-03] MEDS ORDERED: ZOFRAN IV PRN (21:06)
[2019-08-03] MEDS: NS 1,000 ML IV SCH (21:47)
--- NOTE | 2019-08-03 22:45 | HISTORY AND PHYSICAL ---
CHIEF COMPLAINT: Shortness of breath and chest pain. HISTORY OF PRESENT ILLNESS: Mr. North is a very pleasant 64-year-old male who comes in with his with multiple complaints. States he woke up this morning and was feeling well. 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 States that he was not wearing a respirator of any type and it was very joshua. Apparently, while under the trailer he became short of breath, dizzy, nausea, had vomiting, cough and chest pressure. He denied overt chest pain. He just felt as if he could not fill his lungs properly. He did have some vague chills after getting out from under the house. He got into the shower and continued to be dizzy so he came into the emergency room. His past medical history contains hypertension, hyperlipidemia and peripheral vascular disease. He does not smoke. The patient had an elevated D- dimer. A CTA was obtained which ruled out pulmonary embolism. The patient will be put on the medical floor for further evaluation and treatment. PAST MEDICAL HISTORY: Hypertension, hyperlipidemia, peripheral vascular disease. PREVIOUS SURGICAL HISTORY: Double angioplasty bypass and cholecystectomy. SOCIAL HISTORY: Lives with . Smoked up until 22 years ago but quit. Has been quit for 22 years. No alcohol. No illicit drugs. FAMILY HISTORY: Positive for mother passing away from lung cancer. Father had CVAs and stomach cancer, in his 50s; however, he was noncompliant with medications from what the patient was telling me. ALLERGIES: Penicillin. HOME MEDICATION: Celexa 30 mg p.o. daily, amlodipine 2.5 mg p.o. daily, aspirin 81 mg p.o. daily, atorvastatin 40 mg p.o. daily, metoprolol 100 mg p.o. daily. REVIEW OF SYSTEMS: Fourteen-point review of systems conducted with the patient. Pertinent positives listed above in the HPI. All other systems reviewed and found to be negative. PHYSICAL EXAMINATION: VITAL SIGNS: Temperature 97.1, pulse 59, respirations 22, blood pressure 120/63, oxygen saturation 97% on room air. GENERAL: Pleasant 64-year-old male sitting in the ER stretcher, alert and oriented times 3, is in no acute distress. He has no chest pain at this time. is at bedside, very supportive. HEENT: Head is atraumatic, normocephalic. Pupils equal, round, reactive to light. Extraocular eye movement is intact. Sclerae are anicteric. Conjunctivae is pink. Oral mucosa is moist. NECK: Supple. No JVD. No thyromegaly. Trachea is midline. No cervical lymphadenopathy. CARDIAC: S1, S2 appreciated. No murmurs, gallops, rubs. LUNGS: Clear to auscultation bilaterally. No rhonchi, wheezes, rales. Symmetric rise and fall with respirations. ABDOMEN: Soft, nondistended, nontender. Bowel sounds present all 4 quadrants, normoactive. No pulsatile mass. No organomegaly. EXTREMITIES: No clubbing, cyanosis, or edema. One-plus pedal pulses bilaterally. GENITOURINARY: No bladder distention. Patient voids. Otherwise deferred. NEUROLOGICAL: Alert and oriented times 3. Cranial nerves 2 through 12 grossly intact. DIAGNOSTIC DATA: Chest x-ray: No acute disease. Pulmonary arteriogram: No evidence of pulmonary embolism. Did state that the patient has COPD. LABORATORY DATA: CBC within normal limits. Coagulation studies within normal limits. D-dimer 1.27. Sodium 138. Potassium 4. Chloride 98. Carbon dioxide 22. BUN 14. Creatinine 1.3. Glucose 112. Troponin less than 0.010. ASSESSMENT AND PLAN: 1. Chest pain, rule out acute myocardial infarction. Order stress test tomorrow morning. Check a lipid profile. Continue his metoprolol and atorvastatin as well as his daily aspirin. He was given 325 mg aspirin in the emergency room. 2. Elevated D-dimer. Patient was ruled out for pulmonary embolism. He states that he is oftentimes sedentary and does sit for long periods of time. We will order an ultrasound of lower extremities just to make sure there is no clot burden in his legs. He states that he has some pain in his left ankle but he believes that is related to a previous fracture. We will continue to monitor. 3. Hypertension. Continue home medications. 4. Hyperlipidemia. Continue home medications. 5. Mild hyperglycemia. Check hemoglobin A1c. Further recommendations per patient clinical course. Dictated by KOLE Deshpande for Cam Laird MD I have performed a face to face diagnostic evaluation. Labs/ xrays- reviewed. Exam- Chest- clear, CV- regular. A/P- Chest Pain- Admit, cardiac work up, cardiology consult. Dr. Laird cc: KOLE Deshpande MD [facility]ITALJazmin
[2019-08-03 22:51] LABS: HEMOGLOBIN A1C 5.4 % (4.8-6.0)
[2019-08-04 00:25] LABS: UR AMPHETAMINES QUAL NONE DETECTED (NONE DETECT); UR BARBITUATES QUAL NONE DETECTED (NONE DETECT); UR BENZODIAZEPIN QUAL NONE DETECTED (NONE DETECT); UR CANNABINOIDS QUAL NONE DETECTED (NONE DETECT); UR COCAINE QUAL NONE DETECTED (NONE DETECT); UR METHADONE QUAL NONE DETECTED (NONE DETECT); UR OPIATES QUAL NONE DETECTED (NONE DETECT); UR OXYCODONE QUAL NONE DETECTED (NONE DETECT); UR PCP QUAL NONE DETECTED (NONE DETECT)
[2019-08-04 05:18] LABS: BASO# 0.02 X1000 (0.0-0.2); BASO% 0.3 % (0.0-0.8); EOS# 0.16 X1000 (0.0-0.7); EOS% 2.3 % (0.0-10.0); HEMATOCRIT 42.9 % (42.0-52.0); HEMOGLOBIN 14.8 g/dL (14.0-18.0); LYMPH# 2.55 X1000 (1.2-3.4); LYMPH% 36.5 % (20.5-51.1); MCHC 34.5 g/dL (33-37); MCV 86.8 FL (81-99); MONO# 0.71 X1000 (0.11-0.59); MONO% 10.2 % (1.7-9.3); NEUT# 3.54 X1000 (1.4-6.5); NEUT% 50.7 % (42.2-75.2); PLT 132 X1000 (130-400); RBC 4.94 XMIL (4.7-6.1); RDW 13.4 % (11.5-14.5); WBC 6.98 X1000 (4.8-10.8)
[2019-08-04 05:48] LABS: CREATININE 1.4 mg/dL (0.7-1.2); POTASSIUM 4.5 mmol/L (3.5-5.1)
[2019-08-04] MEDS ORDERED: NORVASC PO SCH (09:00)
[2019-08-04] MEDS ORDERED: ASPIRIN EC PO SCH (09:00)
[2019-08-04] MEDS ORDERED: TOPROL XL PO SCH (09:00)
[2019-08-04 14:14] LABS: ALLEN TEST NO; BLOOD TYPE ARTERIAL; HCO3-(ACT) 26.4 mmoll (20.0-26.0); METHB 1.4 % (0.0-1.5); MODALITY ROOM AIR; O2(CT) 20.2 mL/dL (15.0-23.0); O2HB 93.8 % (95.0-99.0); PCO2(98.6) 40 mmHg (35-45); PO2(98.6) 70 mmHg (60-100); SAMPLE BLOOD; SAO2 97.2 % (95.0-100.0); THB 15.3 g/dL (11.5-17.4); pH(98.6) 7.43 (7.35-7.45)
--- NOTE | 2019-08-04 15:00 | PROGRESS NOTE ---
DATE: 08/04/2019 SUBJECTIVE: This morning Mr. North refers to be doing a lot better, does not have any more chest discomfort. No shortness of breath. 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 He said there was a lot of dust over there and he started having a lot of shortness of breath. He took a break and that got better. He went back and once he started he started having more shortness of breath and some chest pressure, so he came to the emergency room where he was evaluated. Initially, he was found to be slightly hypertensive with a blood pressure of 174/93. He was admitted to rule out any coronary artery disease. Of note, Mr. North has high blood pressure, dyslipidemia, previous aortoiliac stenosis status post stent placements. CURRENT VITALS: Blood pressure 154/77, pulse of 63, respirations 20, temperature 97.6 degrees. General: Mr. North is a 64-year-old gentleman. He is in bed, no distress. Mucosa is pink and moist. Anicteric. Acyanotic. Neck: Supple. No JVD. Chest: Clear to auscultation. No crepitations. No rhonchi. Cardiovascular: Regular rate and rhythm. No murmurs, no rubs, no gallops. GI: Abdomen was soft, nontender. Bowel sounds are present. 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 There is no focal neurological deficit. LABORATORY DATA: Has been reviewed. CBC is completely normal. Chemistry is also within normal range except creatinine of 1.4. The patient's EKGs on admission did show normal sinus rhythm, normal axis, no ST-segment or T-wave abnormality. A CTA of the lungs showed no evidence of pulmonary emboli, but there was COPD. ASSESSMENT: 1. Acute dyspnea secondary to airway hyperreactivity reaction on background of COPD. We think this probably was a lot of dust and fumes at where Mr. North was having his insulation done and that might have triggered his presenting complaint, suggestive of fumes induced pneumonitis. He seems to be a lot better. We are going to wait on his cardiac workup to be completed. 2. COPD on CAT scan. The patient is completely asymptomatic at this point. He has not had any symptoms before. He used to be a chain smoker in the past, but he gave up smoking more than 20 years ago. 3. History of peripheral vascular disease, status post double angioplasty bypass on the lower extremities. 4. Hypertension, controlled. 5. Dyslipidemia. So in general, I think Mr. North is now a lot better. Troponins and EKGs have been unremarkable. A stress test has been done today. We are pending the official report. If it is negative, I think we can discharge him. cc: Bradley Norwood MD MTDD
[2019-08-04] MEDS: NS 1,000 ML IV SCH (15:11)
--- NOTE | 2019-08-04 15:50 | Diag Imaging Result Document ---
PROCEDURE NAME: MYOCARDIAL PERF SCAN, STR/REST - 08/04/2019 INDICATION: Chest pain. PROCEDURES PERFORMED: 1. Ryan protocol stress. 2. One-day stress rest myocardial perfusion imaging. FINDINGS: RYAN PROTOCOL STRESS RESULTS: 1. Baseline EKG shows sinus rhythm. 2. Patient exercised for a total of 5 minutes 36 seconds achieving peak heart rate of 141 which was 90% of age predicted max. He achieved 7 METS and stage 2 of the Ryan protocol. Exercise capacity was significantly reduced at only 75% of age and sex predicted exercise capacity. 3. Appropriate blood pressure response to exercise. 4. Test was terminated due to fatigue. 5. No anginal complaints occurred during the course of the study. 6. There was 2 mm of flat to upsloping ST depression occurring in the lateral leads. No significant arrhythmias were identified. EKG changes resolved quickly during recovery. PERFUSION IMAGING RESULTS: 1. There is evidence of abnormal extracardiac uptake on the rest images that appears to be small amount of surface contamination that did not interfere with interpretation. 2. TID ratio of 1.19 but on review of splash images, there does not appear to be any significant transient ischemic dilatation. 3. Perfusion imaging demonstrates normal homogenous uptake of radiotracer throughout the myocardial segments. No evidence of ischemic changes. 4. Normal ejection fraction 80%. End-diastolic volume 93, end systolic volume 19. Normal wall motion. cc: MD Len Lucas CRNP
[2019-08-04 16:22] VITALS: BP 153/78
--- NOTE | 2019-08-05 17:06 | DISCHARGE SUMMARY ---
ADMISSION DATE: 08/03/2019 DISCHARGE DATE: 08/04/2019 DISPOSITION: Home. FOLLOW UP: Dr. Scar Cabrera. CONSULTATION DURING THIS ADMISSION: None. IMAGING STUDIES OF SIGNIFICANCE: 1. A chest x-ray on 08/03/2019 showed no evidence of acute disease. 2. A CTA of the lungs shows COPD. No evidence of pulmonary emboli. 3. A myocardial perfusion scan shows an ejection fraction of 80%. No evidence of transient ischemic dilation. ADMISSION DIAGNOSES: 1. Chest pain. 2. Elevated D-dimer. 3. Hypertension. 4. Dyslipidemia. DIAGNOSES AT THE TIME OF DISCHARGE: 1. Acute dyspnea secondary to airway hyperreactivity to dust at workplace at home. 2. Emphysematous changes on computed tomography scan, likely undiagnosed COPD. 3. History of peripheral vascular disease, status post double lower extremity angioplasty with bypass. 4. Hypertension. 5. Dyslipidemia. DISCHARGE MEDICATIONS: 1. Amlodipine 2.5 p.o. daily. 2. Atorvastatin 40 mg p.o. at bedtime. 3. Metoprolol 100 mg p.o. daily. 4. Citalopram 30 mg p.o. daily. 5. Aspirin 81 mg p.o. daily. PRESENTING COMPLAINT: Shortness of breath and chest discomfort. HISTORY OF PRESENT COMPLAINT: Mr. 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 He started having some cough, nauseation, runny nose and shortness of breath. He stopped for awhile, went to sit down. When he went back, he started having the same symptoms; at this time was associated with chest pressure, so he came to the emergency department. HOSPITAL COURSE: Mr. North was admitted to the medical floor because of his risk factors, coronary artery disease needed to be ruled out. His troponins were trended 4 times, which were all negative. His pro B was 204, minimally elevated. His EKG on admission was normal sinus rhythm with no ST-segment abnormality or T-wave abnormality. He also underwent a stress test which came back completely negative. We think Mr. North's symptoms were precipitated by dust at the workplace on the background of longstanding asymptomatic COPD. He has been advised to continue abstaining from smoking, and he has been advised to use a respirator when he is doing any work that could potentially involve dust. This morning, he refers to be doing well. His current vitals: Blood pressure is 153/78, pulse of 60, respiration is 16. The patient is saturating 98% on room air. His ABG is also completely unremarkable on room air. We think Mr. North is clinically stable to be discharged. All the discharge instructions have been discussed with him and he voiced understanding. TIME SPENT FOR DISCHARGE: 35 minutes. cc: MD Scar Avina MD [facility]azmin
== END 2019-08-04 16:46 | disposition home or self-care (01) ==
LOC: ED 13:01 → INTOOBSV 20:28 → SUATTDRO 20:28 → 1N 20:28
PROVIDERS: ATTEND Internal Medicine